=== PATIENT | female | born 1975 | race Hispanic/Latino ===

== ENCOUNTER 2022-02-10 08:50 | Outpatient (CLI) | payer BC | END 2022-02-10 08:51 | disposition home or self-care (01) | LOC: CSHCP 08:50 | PROVIDERS: ATTEND Internal Medicine | DX: J98.4 Other disorders of lung (principal); R94.2 Abnormal results of pulmonary function studies | CPT/HCPCS: 94060; 94618; 94726; 94729 ==

== ENCOUNTER 2023-03-08 08:00 | Outpatient (CLI) | payer BC | END 2023-03-08 08:01 | disposition home or self-care (01) | LOC: CSHCP 08:00 | PROVIDERS: ATTEND Internal Medicine | DX: J84.9 Interstitial pulmonary disease, unspecified (principal) | CPT/HCPCS: 94010; 94729; 94760 ==

== ENCOUNTER 2023-07-27 07:44 | Outpatient (CLI) | payer BC | END 2023-07-27 07:45 | disposition home or self-care (01) | LOC: CSHCP 07:44 | PROVIDERS: ATTEND Internal Medicine | DX: J84.9 Interstitial pulmonary disease, unspecified (principal); J98.4 Other disorders of lung | CPT/HCPCS: 94060; 94726; 94729; 94760 ==